=== PATIENT | male | born 1945 | race Caucasian/White ===

== ENCOUNTER 2022-02-10 23:39 | Emergency (ER) | payer MEDICARE ==
[~2022-02-10] VITALS: Ht 172.7 cm; Wt 100.0 kg
[2022-02-11] MEDS ORDERED: ASPIRIN 81 MG CHEW TABLET PO ONE (00:10)
[2022-02-11] MEDS: NITROGLYCERIN 0.4 MG SUBL TABLET SL PRN ×2 (00:14→00:15)
[2022-02-11 00:15] VITALS: BP 134/70
[2022-02-11 00:25] LABS: INR 1.04
[2022-02-11 00:26] LABS: PARTIAL THROMBOPLASTIN TIME 30.4 SECONDS (25.9-37.0)
[2022-02-11 00:27] LABS: MEAN CORPUSCULAR HEMOGLOBIN 28.8 pg (27.0-33.0); MEAN CORPUSCULAR HGB CONC 31.4 g/dl (32.0-36.5); MEAN CORPUSCULAR VOLUME 91.8 fl (80.0-96.0); PLATELET COUNT, AUTOMATED 229 10^3/uL (150-450); RED BLOOD COUNT 5.83 10^6/uL (4.30-6.10); WHITE BLOOD COUNT 15.6 10^3/uL (4.0-10.0)
[2022-02-11 00:28] LABS: HEMATOCRIT 53.5 % (42.0-52.0); HEMOGLOBIN 16.8 g/dl (13.5-17.5)
[2022-02-11 00:56] LABS: ALBUMIN 3.4 GM/DL (3.2-5.2); BILIRUBIN,TOTAL 1.2 MG/DL (0.2-1.0); CALCIUM LEVEL 9.2 MG/DL (8.8-10.2); CREATININE FOR GFR 2.04 MG/DL (0.70-1.30); GLOMERULAR FILTRATION RATE 34.2 (>42); POTASSIUM SERUM 4.6 MEQ/L (3.5-5.1); TOTAL PROTEIN 7.2 GM/DL (6.4-8.2)
[2022-02-11 01:01] LABS: CK-MB VALUE MASS 110.6 NG/ML (<3.6); MB/CK RELATIVE INDEX 7.84 (< OR =4)
[2022-02-11] MEDS ORDERED: TENECTEPLASE 50 MG KIT (TNKase) (J3101 PER 1MG) IV ONE (01:10)
[2022-02-11] MEDS ORDERED: HEPARIN DRIP 25,000 UNITS in IV 1 EA IV SCH (01:20)
[2022-02-11] MEDS ORDERED: MORPHINE 4 MG/ML 1ML VIAL/SYRINGE IV ONE (01:25)
[2022-02-11 01:45] VITALS: BP 147/98
== END 2022-02-11 01:59 | disposition short-term general hospital (02) ==
LOC: EDBD 23:39 → M ED 23:39
DX: I21.3 ST elevation (STEMI) myocardial infarction of unspecified site (principal); E11.9 Type 2 diabetes mellitus without complications; I10 Essential (primary) hypertension; E78.5 Hyperlipidemia, unspecified; K21.9 Gastro-esophageal reflux disease without esophagitis; Z95.5 Presence of coronary angioplasty implant and graft; Z85.51 Personal history of malignant neoplasm of bladder
CPT/HCPCS: 36415; 80053; 82550; 82553; 84484; 85027; 85610; 85730; 87486; 87581; 87633; 87798; 93005; 93041; 94760; 96365; 96375; 99285; J1644; J2270; J3101